=== PATIENT | male | born 1995 | race Caucasian/White ===

== ENCOUNTER 2019-09-25 12:18 | Emergency (ER) | payer OTHER ==
[2019-09-25] MEDS ORDERED: NORMAL SALINE 1000 ML 1,000 ML IV ONE (12:28)
[2019-09-25] MEDS ORDERED: ONDANSETRON HCL INJ/PF 4 MG/2 ML SDV IV ONE (12:28)
--- NOTE | 2019-09-25 12:29 | ER Document Report ---
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 Reports EtOH last night and he is hung over. Denies fever or diarrhea. Reports he cannot count how many times he is vomited today. Denies recent exposure to coronavirus or to anyone that has been exposed. I have greeted and performed a rapid initial assessment of this patient. A comprehensive ED assessment and evaluation of the patient, analysis of test results and completion of the medical decision making process will be conducted by additional ED providers. - Related Data Allergies/Adverse Reactions: No Known Allergies Allergy (Unverified 09/25/19 12:25) Physical Exam - Vital signs Vitals: Temp Pulse Resp BP Pulse Ox 97.4 F 90 16 122/74 98 09/25/19 12:25 09/25/19 12:25 09/25/19 12:25 09/25/19 12:25 09/25/19 12:25 Course - Vital Signs Vital signs: Temp Pulse Resp BP Pulse Ox 97.4 F 90 16 122/74 98 09/25/19 12:25 09/25/19 12:25 09/25/19 12:25 09/25/19 12:25 09/25/19 12:25
--- NOTE | 2019-09-25 12:52 | ER Document Report ---
ED GI/ - General Chief Complaint: Vomiting Stated Complaint: VOMITING Time Seen by Provider: 09/25/19 12:25 Mode of Arrival: Ambulatory Notes: CHIEF COMPLAINT: Vomiting HPI: 23-year-old male brought to the emergency department for multiple episodes of vomiting after drinking too much alcohol last night. Patient states she is thrown up 10-15 times. Reports mild epigastric pain. No fever no recent ill contacts ROS: See HPI - all other systems were reviewed and are otherwise negative Constitutional: no fever Eyes: no drainage, no blurred vision ENT: no runny nose, no sore throat Cardiovascular: no chest pain Resp: no SOB, no cough GI: Positive vomiting, no diarrhea, positive abdominal pain : no dysuria Integumentary: no rash Allergy: no hives Musculoskeletal: no extremity pain or swelling Neurological: no numbness/tingling, no weakness MEDICATIONS: I agree with the patient medications as charted by the RN. ALLERGIES: I agree with the allergies as charted by the RN. PAST MEDICAL HISTORY/PAST SURGICAL HISTORY: Reviewed and agree as charted by RN. SOCIAL HISTORY: Reviewed and agree as charted by RN. FAMILY HISTORY: No significant familial comorbid conditions directly related to patient complaint EXAM: Reviewed vital signs as charted by RN. CONSTITUTIONAL: Alert and oriented and responds appropriately to questions. Well-appearing; well-nourished, mild distress secondary to discomfort HEAD: Normocephalic; atraumatic EYES: PERRL; Conjunctivae clear, sclerae non-icteric ENT: normal nose; no rhinorrhea; moist mucous membranes; pharynx without lesions noted, no uvula edema or deviation, no tonsillar hypertrophy, phonation normal NECK: Supple without meningismus; non-tender; no cervical lymphadenopathy, no masses CARD: RRR; no murmurs, no clicks, no rubs, no gallops; symmetric distal pulses RESP: Normal chest excursion without splinting or tachypnea; breath sounds clear and equal bilaterally; no wheezes, no rhonchi, no rales, pulse oximetry ABD/GI: Normal bowel sounds; non-distended; soft, mild tenderness in the epigastric region on palpation, no rebound, no guarding; no palpable organomegaly or masses. BACK: The back appears normal and is non-tender to palpation, there is no CVA tenderness EXT: Normal ROM in all joints; non-tender to palpation; no cyanosis, no effusio ns, no edema SKIN: Normal color for age and race; warm; dry; good turgor; no acute lesions noted NEURO: Moves all extremities equally; Motor and sensory function intact PSYCH: The patient's mood and manner are appropriate. Grooming and personal hygiene are appropriate. MDM: 23-year-old male presenting for vomiting after drinking alcohol last night. Initial orders through triage process. TRAVEL OUTSIDE OF THE [place] IN LAST 30 DAYS: No - Related Data Allergies/Adverse Reactions: No Known Allergies Allergy (Unverified 09/25/19 12:25) Past Medical History - General Information source: Patient - Social History Smoking Status: Never Smoker Family History: Reviewed & Not Pertinent Patient has suicidal ideation: No Patient has homicidal ideation: No Physical Exam - Vital signs Vitals: Temp Pulse Resp BP Pulse Ox 97.4 F 90 16 122/74 98 09/25/19 12:25 09/25/19 12:25 09/25/19 12:25 09/25/19 12:25 09/25/19 12:25 Course - Re-evaluation Re-evalutation: 09/25/19 14:18 Patient shows a mildly elevated T bili still with mild epigastric tenderness. Mostly complaining of headache. Nausea is resolved. Will send for ultrasound to ensure no gallbladder dysfunction given the elevated T bili all this may be related to his vomiting. If ultrasound is negative anticipate discharge home 09/25/19 15:15 Ultrasound negative, will discharge home with Zofran, Motrin, PCP follow-up - Vital Signs Vital signs: Temp Pulse Resp BP Pulse Ox 97.4 F 90 16 122/74 98 09/25/19 12:25 09/25/19 12:25 09/25/19 12:25 09/25/19 12:25 09/25/19 12:25 - Laboratory Result Diagrams: 09/25/19 12:54 Laboratory results interpreted by me: 09/25/19 12:54 Total Bilirubin 1.9 H Total Protein 8.5 H Albumin 5.3 H Discharge - Discharge Clinical Impression: Epigastric abdominal pain Vomiting Qualifiers: Vomiting type: unspecified Vomiting Intractability: non-intractable Nausea presence: with nausea Qualified Code(s): R11.2 - Nausea with vomiting, unspecified Condition: Stable Disposition: HOME, SELF-CARE Additional Instructions: Take Zofran for nausea or vomiting. Take Motrin for headache or discomfort. Take Pepcid to help calm the stomach. Follow-up with a primary care provider for reevaluation return for recurrent vomiting or worsening pain. Your ultrasound did not show any acute findings today Prescriptions: Famotidine [Pepcid 20 mg Tablet] 20 mg PO BID #20 tablet Ondansetron [Zofran Odt 4 mg Tablet] 1 - 2 tab PO Q4H PRN #15 tab.rapdis PRN Reason: For Nausea/Vomiting Referrals: MISSY FIGUEROA DO [NO LOCAL MD] - Follow up as needed
[2019-09-25 13:32] LABS: ALBUMIN 5.3 g/dL (3.5-5.0); ALKALINE PHOSPHATASE 71 U/L (38-126); ANION GAP 15 (5-19); ASPARTATE AMINO TRANSFERASE 27 U/L (17-59); BILIRUBIN,TOTAL 1.9 mg/dL (0.2-1.3); BLOOD UREA NITROGEN 14 mg/dL (7-20); CALCIUM 10.1 mg/dL (8.4-10.2); CARBON DIOXIDE 24 mmol/L (22-30); CHLORIDE 103 mmol/L (98-107); GLUCOSE 86 mg/dL (75-110); POTASSIUM 4.5 mmol/L (3.6-5.0); TOTAL PROTEIN 8.5 g/dL (6.3-8.2)
[2019-09-25 13:35] LABS: ALCOHOL < 10 mg/dL (NONE DETECTED)
[2019-09-25] MEDS ORDERED: IBUPROFEN 600 MG TABLET PO ONE (14:18)
--- NOTE | 2019-09-25 15:10 | RADIOLOGY REPORT (SQ) ---
EXAM DESCRIPTION: U/S ABDOMEN LIMITED W/O DOP COMPLETED DATE/TIME: 09/25/2019 2:55 pm REASON FOR STUDY: epigastric pain COMPARISON: None. TECHNIQUE: Dynamic and static grayscale images acquired of the abdomen and recorded on PACS. Additio nal selected color Doppler and spectral images recorded. LIMITATIONS: None. FINDINGS: PANCREAS: No masses. Visualized pancreatic duct normal caliber. LIVER: No masses. Echotexture normal. LIVER VASCULATURE: Normal directional flow of the main portal vein and hepatic veins. GALLBLADDER: No stones. Normal wall thickness. No pericholecystic fluid. ULTRASOUND-DETECTED LENNON'S SIGN: Negative. INTRAHEPATIC DUCTS AND COMMON DUCT: CBD and intrahepatic ducts normal caliber. No filling defects. INFERIOR VENA CAVA: Normal flow. AORTA: No aneurysm identified. RIGHT KIDNEY: Normal size. Normal echogenicity. No solid or suspicious masses. No hydronephros is. No calcifications. PERITONEAL AND RIGHT PLEURAL SPACE: No ascites or effusions. OTHER: No other significant findings. IMPRESSION: NO ACUTE FINDINGS. TECHNICAL DOCUMENTATION: JOB ID: [id number] [place]-[id number] 2010 [employer]- All Rights Reserved Reading location - IP/workstation name: [employer]
[2019-09-25 15:48] VITALS: BP 119/57
== END 2019-09-25 15:48 | disposition home or self-care (01) ==
LOC: ER 12:18
DX: R10.13 Epigastric pain (principal); R11.2 Nausea with vomiting, unspecified
CPT/HCPCS: 99284; 96361; 96374; 36415; 80307; 80053; 76705; J2405; J7030